=== PATIENT | female | born 1955 ===

== ENCOUNTER → 2024-06-14 11:48 | Outpatient (ROUT) | payer OTHER, SELFPAY ==
[2024-06-14 12:00] LABS: Add Manual Diff / Slide Review NO; Basophils Absolute Auto 200 /uL (0-100); Basophils Percent Auto 2.7 % (0-2); Eosinophils Absolute Auto 300 /uL (0-450); Eosinophils Percent Auto 4.7 % (2-4); Hematocrit 37.5 % (36-46); Hemoglobin 12.4 g/dL (12.0-16.0); Lymphocytes Absolute Auto 2000 /uL (1100-4500); Lymphocytes Percent Auto 28.4 % (25-40); Mean Corpuscular HGB Conc 33.1 % (30-36); Mean Corpuscular Hemoglobin 29.4 PG (26-34); Mean Corpuscular Volume 88.8 fL (80-100); Monocytes Absolute Auto 800 /uL (0-900); Monocytes Percent Auto 11.3 % (3-14); Neutrophils Absolute Auto 3700 /uL (1500-7000); Neutrophils Percent Auto 52.9 % (50-75); Platelet Count 347 X10^3/uL (150-400); Red Blood Cell Count 4.22 X10^6/uL (4.0-5.2); Red Cell Distribution Width 15.2 % (11.6-14.8); White Blood Cell Count 6.9 X10^3/uL (4.5-11.0)
[2024-06-14 12:32] LABS: Alanine Aminotransferase 22 IU/L (<35); Estimated Glomerular Filt Rate > 60 mL/min (>60)
[2024-06-14 13:22] LABS: Erythrocyte Sedimentation Rate 20 MM/HR (0-20)
[2024-06-15 11:28] LABS: Vancomycin Trough 16.1 ug/mL (10-20)
== END ==
PROVIDERS: Visit Provider Internal Medicine Infectious Disease
DX: M86.2 Subacute osteomyelitis (principal); S42.201A Unspecified fracture of upper end of right humerus, initial encounter for closed fracture
CPT/HCPCS: 80202; 82565; 84460; 85025; 85651

== ENCOUNTER → 2024-06-21 12:19 | Outpatient (ROUT) | payer OTHER, SELFPAY ==
[2024-06-21 12:28] LABS: Add Manual Diff / Slide Review NO; Basophils Absolute Auto 100 /uL (0-100); Basophils Percent Auto 1.5 % (0-2); Eosinophils Absolute Auto 300 /uL (0-450); Eosinophils Percent Auto 4.3 % (2-4); Hematocrit 41.7 % (36-46); Hemoglobin 13.6 g/dL (12.0-16.0); Lymphocytes Absolute Auto 1800 /uL (1100-4500); Mean Corpuscular HGB Conc 32.6 % (30-36); Mean Corpuscular Hemoglobin 28.8 PG (26-34); Mean Corpuscular Volume 88.2 fL (80-100); Monocytes Absolute Auto 1000 /uL (0-900); Monocytes Percent Auto 13.9 % (3-14); Neutrophils Absolute Auto 3700 /uL (1500-7000); Neutrophils Percent Auto 54.3 % (50-75); Platelet Count 326 X10^3/uL (150-400); Red Blood Cell Count 4.73 X10^6/uL (4.0-5.2); White Blood Cell Count 6.8 X10^3/uL (4.5-11.0)
[2024-06-21 12:54] LABS: Alanine Aminotransferase 23 IU/L (<35); Estimated Glomerular Filt Rate > 60 mL/min (>60)
[2024-06-21 14:17] LABS: Erythrocyte Sedimentation Rate 19 MM/HR (0-20)
[2024-06-21 21:34] LABS: Vancomycin Trough 14.9 ug/mL (10-20)
== END ==
PROVIDERS: Visit Provider Internal Medicine Infectious Disease
DX: M86.2 Subacute osteomyelitis (principal); S42.201A Unspecified fracture of upper end of right humerus, initial encounter for closed fracture
CPT/HCPCS: 80202; 82565; 84460; 85025; 85651